=== PATIENT | female | born 1985 | race African-American/Black ===

== ENCOUNTER 2017-01-30 08:34 | Day surgery (SDC) | payer OTHER ==
[2017-01-27 10:27] VITALS: BMI 22.8
[~2017-01-30] VITALS: Ht 170.2 cm; Wt 70.6 kg
[2017-01-30] VITALS (10 sets, daily range): BP systolic 112–133; BP diastolic 66–82; PULSE 70–108; RESP 12–30; Ht 170.2 cm; Wt 70.6 kg
[2017-01-30] MEDS ORDERED: CEFAZOLIN 2 GM/50 ML (PMX) 50 ML IVPB ONE (10:00)
[2017-01-30] MEDS ORDERED: SOD CHLORIDE 0.9% 1,000 ML IV ONE (10:00)
[2017-01-30] MEDS ORDERED: BUPIVACAINE 0.25%/EPI (SDV) 30 ML INJ ONE (10:22)
[2017-01-30] MEDS ORDERED: PROCHLORPERAZINE 10 MG INJ IV PRN (10:30)
[2017-01-30] MEDS ORDERED: HYDROmorphONE (0.2 MG/ML) 10ML SYG IV PRN ×3 (10:30)
[2017-01-30] MEDS ORDERED: MEPERIDINE 25 MG INJ IV PRN (10:30)
[2017-01-30] MEDS ORDERED: FENTAnyl 50 MCG/ML VIAL IV PRN ×3 (10:30)
[2017-01-30] MEDS ORDERED: DIPHENHYDRAMINE 50 MG INJ IV PRN (10:30)
[2017-01-30] MEDS ORDERED: ONDANSETRON 4 MG INJ IV PRN ×2 (10:30→11:30)
--- NOTE | 2017-01-30 10:38 | HPN ---
Date/Time of Note Date/Time of Note DATE: 01/30/17 TIME: 10:37 Interval H&P Admission Note Pt. seen H&P reviewed: No system changes MEET LICEA MD Jan 30, 2017 10:37
[2017-01-30] MEDS ORDERED: BUPIVACAINE 0.25%/EPI (SDV) 30 ML INJ INJ ONE (10:40)
[2017-01-30] MEDS ORDERED: LIDOCAINE 2% (SDV) 5 ML INJ ONE (10:46)
[2017-01-30] MEDS ORDERED: PROPOFOL 20 ML ONE (10:46)
[2017-01-30] MEDS ORDERED: FENTAnyl 50 MCG/ML VIAL ONE (10:47)
[2017-01-30] MEDS ORDERED: MIDAZOLAM 1 MG/ML 2 ML INJ ONE ×2 (10:47→10:59)
[2017-01-30] MEDS ORDERED: PHENYLephrine (100 MCG/ML) 5ML SYG ONE (11:02)
[2017-01-30] MEDS ORDERED: METOCLOPRAMIDE 10 MG INJ ONE (11:02)
[2017-01-30] MEDS ORDERED: DEXAMETHASONE 4 MG/ML 1 ML INJ ONE (11:02)
[2017-01-30] MEDS ORDERED: ONDANSETRON 4 MG INJ ONE (11:02)
[2017-01-30] MEDS ORDERED: CEFAZOLIN 1 GM INJ ONE (11:09)
[2017-01-30] MEDS ORDERED: EPHEDrine SULFATE 50 MG/5 ML SYG ONE (11:17)
[2017-01-30] MEDS ORDERED: KETOROLAC 30 MG INJ IV PRN (11:30)
--- NOTE | 2017-01-30 11:37 | OPR ---
Date/Time of Note Date/Time of Note DATE: 01/30/17 TIME: 11:32 Operative Report Procedure Date: Jan 30, 2017 Preoperative Diagnosis Soft tissue mass of the back Postoperative Diagnosis Soft tissue mass of the back Operation Performed Excision soft tissue mass of back, subfascial, 4 cm x 2 cm Surgeon: MEET LICEA MD Anesthesia: general Anesthesiologist: GIDEON GUEVARA MD Estimated Blood Loss: minimal Specimens Back mass Complications: None Pt Condition Post Procedure: stable Disposition: PACU Indications The patient is a 31-year-old -[place] female who presented to the office with a soft tissue mass of the back this is been present for the past 3 months and had been growing and causing increasing discomfort. The patient was scheduled for elective excision for symptom relief and definitive pathological diagnosis. All risks and benefits of the procedure including, but not limited to : Wound infection, excessive bleeding, postoperative seroma/hematoma formation, mass recurrence, etc. were all explained to the patient in full detail. She fully understood and wished to proceed with the procedure. Informed consent was obtained. Operative\Procedure Findings Findings consistent with lipoma. 4 cm x 2 cm. Subfascial location Procedure Description The patient was brought to the operating room and placed supine on the operating table. Bilateral sequential compression devices were placed on both lower extremities. A dose of broad-spectrum perioperative intravenous antibiotics was given. After the induction of smooth general LMA anesthesia the patient was positioned in the left lateral decubitus with the right side up. The mass was located to the right of midline in the upper back. It was preoperatively marked and confirmed with the patient in the holding area. The back was then prepped and draped in standard surgical fashion. After performance of the surgical timeout and approximately 4 cm incision was made transversely over the area of the mass after anesthetizing the skin using 0.25% Marcaine with epinephrine. Incision was made with a 15 blade scalpel and carried down through the skin and dermis and subcutaneous tissues using Bovie electrocautery. The fascia was then incised. A subfascial lipomatous mass was identified. It was dissected free of surrounding tissues circumferentially and transected at its base using the Bovie electrocautery. It was passed off the field as specimen. Hemostasis was inspected for and noted to be total. The wound cavity was then irrigated with warm normal saline and the irrigant returned crystal clear. The wound was then closed in layers using running 3-0 Vicryl suture for the fascial layer and interrupted 3-0 Vicryl sutures for the dermal layer. The skin was then reapproximated using running subcuticular 4-0 Monocryl suture. Further local anesthesia was applied around skin of the incision site. The wound was then cleaned and Dermabond was applied. The patient was awoken from anesthesia and transported to the recovery room in stable condition. All counts were correct at the end of the case 2. MEET LICEA MD Jan 30, 2017 11:37
[2017-01-30] MEDS ORDERED: IBUPROFEN 600 MG TAB PO PRN (20:00)
== END 2017-01-30 12:50 | disposition home or self-care (01) ==
LOC: SDS 08:34
PROVIDERS: ATTEND Surgery
DX: D17.1 Benign lipomatous neoplasm of skin and subcutaneous tissue of trunk (principal); F41.8 Other specified anxiety disorders
CPT/HCPCS: 11406; 84703; 88304; J0690; J1100; J2250; J2370; J2405; J2765; J3010; Z7512; Z7610